=== PATIENT | female | born 1990 | race Caucasian/White ===

== ENCOUNTER 2022-10-12 07:43 | Emergency (ER) | payer BC ==
[2022-10-12] MEDS ORDERED: Sodium Chloride 0.9% 2.5 ML Syringe FLUSH PRN (08:25)
[2022-10-12] MEDS ORDERED: Sodium Chloride 0.9% 10 ML Syringe FLUSH PRN (08:25)
[2022-10-12 08:48] LABS: CARBON DIOXIDE,CO2 22.3 mmol/L (21.0-32.0); POTASSIUM,K 3.9 mmol/L (3.5-5.1)
[2022-10-12] MEDS ORDERED: Iopamidol 755 MG/ML 500 ML Multipack Bottle IVPUSH ONE (09:22)
== END 2022-10-12 12:34 | disposition home or self-care (01) ==
LOC: MW.ED 07:43
DX: R10.31 Right lower quadrant pain (principal); Z79.899 Other long term (current) drug therapy
CPT/HCPCS: 36415; 74177; 76857; 80053; 81001; 81025; 85025; 99284; J3490; Q9967

== ENCOUNTER 2024-08-02 00:08 | Inpatient (IN) | payer BC ==
[2024-08-02] MEDS ORDERED: Sodium Chloride 0.9% 2.5 ML Syringe FLUSH PRN (00:18)
[2024-08-02] MEDS ORDERED: Misoprostol 200 MCG Tab PO PRN (00:18)
[2024-08-02] MEDS ORDERED: Carboprost Tromethamine 250 MCG/1 mL Vial IM PRN (00:18)
[2024-08-02] MEDS ORDERED: Tranexamic Acid in NACL,ISO-OS 1,000 MG in Premix Bag 1 BAG IV PRN (00:18)
[2024-08-02] MEDS ORDERED: Terbutaline 1 MG/ML SDV SUBCUT PRN (00:18)
[2024-08-02] MEDS ORDERED: Lidocaine 1% 50 ML MDV INJECT PRN (00:18)
[2024-08-02] MEDS ORDERED: Water For Irrigation,Sterile 1,000 ML Container IRR PRN (00:18)
[2024-08-02] MEDS ORDERED: Sodium Chloride 0.9% 20 ML SDV IV PRN (00:18)
[2024-08-02] MEDS ORDERED: Methylergonovine 0.2 MG/1 ML Amp IM PRN (00:18)
[2024-08-02] MEDS ORDERED: Sodium Chloride 0.9% 10 ML Syringe FLUSH PRN (00:18)
[2024-08-02] MEDS ORDERED: Butorphanol 2 MG/ML SDV IVPUSH PRN (00:18)
[2024-08-02] MEDS ORDERED: Ondansetron 4 MG/2 ML SDV IVPUSH PRN (00:18)
[2024-08-02] MEDS ORDERED: Oxytocin/0.9 % Sodium Chloride 30 UNIT/500 ML BAG IV SCH (00:30)
[2024-08-02 00:49] LABS: HEMOGLOBIN 11.4 g/dL (12.0-16.0); MEAN CORPUSCULAR HEMOGLOBIN 26.6 pg (28.0-32.0); MEAN CORPUSCULAR HGB CONC 33.5 g/dL (32.0-36.0); MEAN CORPUSCULAR VOLUME 79.4 fL (83.0-99.0); MEAN PLATELET VOLUME 10.2 fL (9.4-12.3); PLATELET COUNT,PLT 266 K/uL (150-400); RED BLOOD CELL COUNT 4.28 M/uL (4.10-5.30); WHITE BLOOD CELL COUNT,WBC 12.16 K/uL (3.9-11.3)
[2024-08-02] MEDS: Ampicillin 2 GM in Sodium Chloride 0.9% 100 ML IV ONE (00:53)
[2024-08-02] MEDS: Lactated Ringers 1,000 ML IV SCH (00:55)
[2024-08-02] MEDS: Misoprostol 25 MCG (1/4 of 100 MCG) Tab VAG PRN (00:59)
[2024-08-02] MEDS: Ropivacaine HCl/PF 400 MG in Premix Bag 1 BAG EPIDUR SCH (05:17)
[2024-08-02] MEDS ORDERED: ePHEDrine 50 MG/ML SDV IVPUSH PRN (05:26)
[2024-08-02] MEDS ORDERED: Phenylephrine HCl In 0.9% NaCl 1 MG/10 ML Syringe IVPUSH PRN (05:26)
[2024-08-02] MEDS ORDERED: ePHEDrine 50 MG/ML SDV IM PRN (05:26)
[2024-08-02] MEDS ORDERED: dexmedeTOMIDine HCl 200 MCG/2 ML SDV EPIDUR SCH (05:30)
[2024-08-02] MEDS: Ampicillin 1 GM in Sodium Chloride 0.9% 50 ML IV SCH (05:43)
[2024-08-02] MEDS: Oxytocin/0.9 % Sodium Chloride 30 UNIT/500 ML BAG IV SCH (06:27)
[2024-08-02] MEDS: Acetaminophen 500 MG Tab PO ONE (10:21)
[2024-08-02] MEDS ORDERED: Lanolin 100% Cream 7 GM Tube TOP PRN (13:14)
[2024-08-02] MEDS ORDERED: Acetaminophen 500 MG Tab PO PRN (13:14)
[2024-08-02] MEDS ORDERED: oxyCODONE 5 MG Tab PO PRN (13:14)
[2024-08-02 13:21] LABS: PH,UMBILICAL ARTERIAL 7.239 (7.18-7.38); PH,UMBILICAL VENOUS 7.383 (7.25-7.45)
[2024-08-02] MEDS: Benzocaine/Menthol 20%-0.5% Spray 78 GM Cannister TOP PRN (14:24)
[2024-08-02] MEDS: Witch Hazel Medicated Pads 40/Jar TOP PRN (14:25)
[2024-08-02] MEDS: Ibuprofen 800 MG Tab PO PRN (15:40)
[2024-08-03 04:36] LABS: HEMATOCRIT 32.6 % (37.0-47.0); HEMOGLOBIN 10.8 g/dL (12.0-16.0)
[2024-08-03] MEDS: Docusate Sodium 100 MG Cap PO PRN (08:10)
[2024-08-03] MEDS: Phenylephrine HCl In 0.9% NaCl 1 MG/10 ML Syringe ONE (09:54)
[2024-08-03] MEDS: Bupivacaine 0.5% 10 ML SDV ONE (09:54)
[2024-08-03] MEDS: Ropivacaine HCl/PF 200 ML ONE (09:54)
== END 2024-08-03 16:10 | disposition home or self-care (01) | DRG 560 ==
LOC: MW.OBCHECK 00:08 → MW.OB 00:10 → MW.OBCHECK 00:20 → MW.OB 00:20 → OBSVTOIN 13:14 → MW.OB 14:01
PROVIDERS: ADMIT Obstetrics & Gynecology; ATTEND Obstetrics & Gynecology
PROC: 10E0XZZ Delivery of Products of Conception, External Approach (ICD-10-PCS; principal; 2024-08-02)
PROC: 10907ZC Drainage of Amniotic Fluid, Therapeutic from Products of Conception, Via Natural or Artificial Opening (ICD-10-PCS; 2024-08-02)
PROC: 3E0R3BZ Introduction of Anesthetic Agent into Spinal Canal, Percutaneous Approach (ICD-10-PCS; 2024-08-02)
PROC: 00HU03Z Insertion of Infusion Device into Spinal Canal, Open Approach (ICD-10-PCS; 2024-08-02)
PROC: 3E033XZ Introduction of Vasopressor into Peripheral Vein, Percutaneous Approach (ICD-10-PCS; 2024-08-02)
DX: O99.824 Streptococcus B carrier state complicating childbirth (principal); Z3A.40 40 weeks gestation of pregnancy; Z37.0 Single live birth; O48.0 Post-term pregnancy; O90.81 Anemia of the puerperium; O99.214 Obesity complicating childbirth; O69.81X0 Labor and delivery complicated by cord around neck, without compression, not applicable or unspecified; E66.811 Obesity, class 1
CPT/HCPCS: 36415; 51702; 59025; 59409; 82803; 85014; 85018; 85027; 86592; 86850; 86900; 86901; A9270-GY; J0290; J0665; J2371; J2590; J2795; J3490; J7120